=== PATIENT | male | born 1970 | race American Indian/Alaskan Native ===

== ENCOUNTER 2018-07-16 09:54 | Inpatient (IN) | payer MEDICAID ==
[2018-07-16 10:10] VITALS: BMI 26.6
--- NOTE | 2018-07-16 10:22 | C.PDOC ---
History Of Present Illness 47 y/o male with no PMHx presents to the ED, sent in by Dr. Clemons for removal of left arm foreign body. Patient states that since December he has had a palpable FB in the left forearm, which he attributes to an incident where a catheter was left inside during routine blood work. Reports he has been NPO since last night. Patient denies any other physical complaints. He denies any fever, chills, chest pain, SOB, abdominal pain, nausea, or vomiting. Time Seen by Provider: 07/16/18 10:05 Chief Complaint (Nursing): Upper Extremity Problem/Injury History Per: Patient History/Exam Limitations: no limitations Onset/Duration Of Symptoms: Days Current Symptoms Are (Timing): Still Present Past Medical History Reviewed: Historical Data, Nursing Documentation, Vital Signs Vital Signs: Last Vital Signs Temp 98.7 F 07/16/18 10:10 Pulse 82 07/16/18 10:10 Resp 18 07/16/18 10:10 BP 151/82 H 07/16/18 10:10 Pulse Ox 99 07/16/18 10:10 - Medical History PMH: No Chronic Diseases Family History: States: Unknown Family Hx - Social History Hx Tobacco Use: Yes Hx Alcohol Use: Yes Hx Substance Use: No - Immunization History Hx Tetanus Toxoid Vaccination: No Hx Influenza Vaccination: No Hx Pneumococcal Vaccination: No Review Of Systems Except As Marked, All Systems Reviewed And Found Negative. Constitutional: Negative for: Fever, Chills Eyes: Negative for: Vision Change ENT: Negative for: Nose Congestion, Throat Pain Cardiovascular: Negative for: Chest Pain, Palpitations, Light Headedness Respiratory: Negative for: Cough, Shortness of Breath Gastrointestinal: Negative for: Nausea, Vomiting, Abdominal Pain, Diarrhea Musculoskeletal: Negative for: Neck Pain, Back Pain Skin: Positive for: Other (foreign body to left forearm) Neurological: Negative for: Weakness, Numbness, Seizures, Headache, Dizziness Physical Exam - Physical Exam Appears: Well, Non-toxic, No Acute Distress Skin: Normal Color, No Rash Head: Atraumatic, Normacephalic Eye(s): bilateral: Normal Inspection, PERRL, EOMI Oral Mucosa: Moist Neck: Normal ROM Chest: Symmetrical Cardiovascular: Rhythm Regular Respiratory: Normal Breath Sounds, No Accessory Muscle Use, Other (Normal inspiratory effort) Gastrointestinal/Abdominal: Soft, No Tenderness, No Distention Back: Normal Inspection Extremity: Left: Other (Palpable small 1cm non-mobile solid mass to medial left forearm, no open wound, increased warmth, or signs of acute infection), Bilateral: Normal Color And Temperature, Normal ROM Pulses: Left Radial: Normal, Right Radial: Normal Neurological/Psych: Oriented x3, Normal Speech, Normal Motor, Normal Sensation Gait: Steady ED Course And Treatment - Laboratory Results Result Diagrams: 07/16/18 10:57 07/16/18 10:57 ECG: Interpreted By Me, Viewed By Me ECG Rhythm: Sinus Rhythm Interpretation Of ECG: Normal intervals. No STEMI. Early repolarization noted and reviewed with attending Dr. Levy Rate From EC O2 Sat by Pulse Oximetry: 99 (RA) Pulse Ox Interpretation: Normal - Other Rad CXR X-Ray: Interpreted by Me, Viewed By Me Interpretation: Accession No. : [id number]. Patient Name / ID : GABBY COLE / [id number]. Exam Date : 07/16/2018 10:27:51 ( Approved ). Study Comment : Sex / Age : M / 47Y. Creator : Elle Wayne MD. Dictator : Elle Wayne MD. Embossing Calender Operator : Asphalt Heater Operator : Elle Wayne MD. Approver2 : Report Date : 07/16/2018 10:55:45. My Comment : . Date of service: 07/16/2018. HISTORY: preop. COMPARISON: No prior. FINDINGS: LUNGS: The lungs are well inflated and clear. PLEURA: No pleural effusions or pneumothorax. CARDIOVASCULAR: The heart is normal in size. No aortic atherosclerotic calcifications present. OSSEOUS STRUCTURES: Within normal limits for the patient's age. VISUALIZED UPPER ABDOMEN: Normal. OTHER FINDINGS: None. IMPRESSION: No active pulmonary disease. Medical Decision Making Medical Decision Making: Plan: Dr. Clemons to take patient to the OR today. Requesting pre-op labs, CXR, EKG. 10:[address] Clemons, who accepts patient to his service, preop studies. Patient started on IV Ancef per his request. 12:00 Labwork reviewed, unremarkable EKG shows early repolarization but otherwise normal CXR shows no active disease Admission order placed to med/surg floor. Patient made aware of change in disposition. Pt lying comfortably in stretcher in NAD at this time. Vital signs stable. Disposition - Disposition Disposition: HOSPITALIZED Disposition Time: 12:00 Condition: STABLE - Clinical Impression Clinical Impression: Foreign body in left upper extremity - PA / DIRECTOR OF ENTERPRISE STRATEGY / Resident Statement MD/DO has reviewed & agrees with the documentation as recorded. - Scribe Statement The provider has reviewed the documentation as recorded by the Scribe Sumi Crews All medical record entries made by the Miguelina were at my direction and pe rsonally dictated by me. I have reviewed the chart and agree that the record accurately reflects my personal performance of the history, physical exam, medical decision making, and the department course for this patient. I have also personally directed, reviewed, and agree with the discharge instructions and disposition.
[2018-07-16] MEDS ORDERED: ceFAZolin 1 MG in Sodium Chloride 0.9% 50 ML IVPB ONE (10:30)
--- NOTE | 2018-07-16 10:59 | RAD ---
Date of service: 07/16/2018 HISTORY: preop COMPARISON: No prior. FINDINGS: LUNGS: The lungs are well inflated and clear. PLEURA: No pleural effusions or pneumothorax. CARDIOVASCULAR: The heart is normal in size. No aortic atherosclerotic calcifications present. OSSEOUS STRUCTURES: Within normal limits for the patient's age. VISUALIZED UPPER ABDOMEN: Normal. OTHER FINDINGS: None. IMPRESSION: No active pulmonary disease.
[2018-07-16 11:03] LABS: BASO # 0.1 K/uL (0.0-0.2); BASO % 0.5 % (0.0-2.0); EOS % 0.5 % (0.0-4.0); HEMOGLOBIN 14.2 g/dL (12.0-18.0); LYMPH # 1.6 K/uL (1.0-4.3); LYMPH % 17.5 % (20.0-40.0); MEAN CELL VOLUME 85.6 fL (80.0-94.0); MEAN CORPUSCULAR HEMOGLOBIN 27.9 pg (27.0-31.0); MEAN CORPUSCULAR HGB CONC 32.6 g/dL (33.0-37.0); MEAN PLATELET VOLUME 8.9 fL (7.2-11.7); MONO # 0.6 K/uL (0.0-0.8); MONO % 6.5 % (0.0-10.0); NEUT # 6.9 K/uL (1.8-7.0); NRBC % 0.1 % (0.0-2.0); RBC 5.07 Mil/uL (4.40-5.90); RED CELL DISTRIBUTION WIDTH 14.7 % (11.5-14.5); WHITE BLOOD COUNT 9.3 K/uL (4.8-10.8)
[2018-07-16 11:13] LABS: ALB/GLOB RATIO 1.3 (1.0-2.1); ALBUMIN 4.7 g/dL (3.5-5.0); ALT/SGPT 30 U/L (21-72); AST/SGOT 41 U/L (17-59); BLOOD UREA NITROGEN 15 mg/dL (9-20); CALCIUM 9.4 mg/dl (8.6-10.4); GFR NON-AFRICAN AMERICAN > 60
[2018-07-16 11:45] LABS: SQUAMOUS EPITHIAL < 1 /hpf (0-5); URINE BACTERIA RARE (<OCC); URINE BILIRUBIN NEGATIVE (NEGATIVE); URINE BLOOD NEGATIVE (NEGATIVE); URINE CLARITY Hazy (Clear); URINE COLOR Yellow (YELLOW); URINE GLUCOSE (UA) NORMAL (Normal); URINE LEUKOCYTE ESTERASE NEG Leu/uL (Negative); URINE PROTEIN 1+ mg/dL (NEGATIVE)
[2018-07-16] MEDS ORDERED: ceFAZolin 1 GM in Sodium Chloride 0.9% 100 ML IVPB SCH (12:00)
[2018-07-16 12:16] LABS: INR 1.2; PROTHROMBIN TIME 12.7 SECONDS (9.7-12.2)
[2018-07-16] MEDS ORDERED: Bupivacaine 0.25% 20 ML INJ IJ ONE (13:53)
[2018-07-16] MEDS ORDERED: Lidocaine Hydrochloride 20 ML INJ ONE (13:53)
[2018-07-16] MEDS ORDERED: Midazolam 2 MG/2 ML VIAL ONE (14:02)
[2018-07-16] MEDS ORDERED: Propofol 10 mg/ml Inj (20 ML) ONE (14:07)
[2018-07-16] MEDS: HYDROmorphone 0.5 mg/0.5 ml ISec IVP PRN ×4 (14:40→17:50)
[2018-07-16] MEDS ORDERED: Acetaminophen-Codeine 300/30 mg Tab PO PRN (14:43)
[2018-07-16] MEDS ORDERED: HYDROmorphone 0.5 mg/0.5 ml ISec ONE (14:43)
[2018-07-16] MEDS: ceFAZolin 1 GM in Sodium Chloride 0.9% 100 ML IVPB SCH ×2 (16:29→23:58)
[2018-07-16 21:16] VITALS: RESP 20
[2018-07-16] MEDS: Oxycodone/Acetaminophen 5/325 mg Tab PO PRN (22:17)
--- NOTE | 2018-07-17 01:49 | OP ---
PROCEDURE DATE: 07/16/2018 PREOPERATIVE DIAGNOSIS: Soft tissue mass (tumors of the left elbow and forearm). POSTOPERATIVE DIAGNOSIS: Soft tissue mass (tumors of the left elbow and forearm). PROCEDURE PERFORMED: Radical resection of 5 cm tumor of the left elbow and radical resection of 4 cm tumor of the left forearm. SURGEON: Raymond Clemons MD TYPE OF ANESTHESIA: General. ESTIMATED BLOOD LOSS: 30 mL. POSTOPERATIVE CONDITION: Stable. INDICATION FOR SURGERY: This is a 47-year-old male who presents with two separate tumors of the left elbow and forearm, who presents for removal of both. DESCRIPTION OF PROCEDURE: The patient was taken to the operating room, IV sedation was administered. Local anesthesia was admitted into the mass of the left elbow, and it was anesthetized with 0.25% Marcaine and 1% lidocaine. A generous elliptical incision was made surrounding the 5 cm mass excising to the fascial layer and removed. Bleeding was controlled using the Bovie. A larger bleeding blood vessel was mobilized, isolated, and repaired with Prolene superior to the brachial artery. After this was repaired, blood flow was confirmed by Doppler. Large tissue defect was left, and the full thickness advancement flaps raised including fascia. Counter incision was then made and a 34 sq cm. advancement flap closure was performed with multiple layers of subcuticular Monocryl and glue. It was advanced distally in the forearm, this was resected in a similar fashion. Another advancement flap closure was also used for this. The wounds were dressed sterilely. The patient tolerated the procedure well, returned to recovery room in stable condition. Raymond Clemons MD
[2018-07-17] MEDS: Oxycodone/Acetaminophen 5/325 mg Tab PO PRN (02:26)
[2018-07-17 06:21] LABS: BASO % 0.4 % (0.0-2.0); EOS # 0.1 K/uL (0.0-0.7); EOS % 1.4 % (0.0-4.0); HEMOGLOBIN 12.8 g/dL (12.0-18.0); LYMPH # 2.6 K/uL (1.0-4.3); LYMPH % 26.9 % (20.0-40.0); MEAN CELL VOLUME 85.7 fL (80.0-94.0); MEAN CORPUSCULAR HEMOGLOBIN 27.8 pg (27.0-31.0); MEAN CORPUSCULAR HGB CONC 32.4 g/dL (33.0-37.0); MONO % 9.9 % (0.0-10.0); NEUT % 61.4 % (50.0-75.0); NRBC % 0.1 % (0.0-2.0); RBC 4.62 Mil/uL (4.40-5.90); RED CELL DISTRIBUTION WIDTH 14.8 % (11.5-14.5); WHITE BLOOD COUNT 9.8 K/uL (4.8-10.8)
[2018-07-17 06:40] LABS: BLOOD UREA NITROGEN 13 mg/dL (9-20); CALCIUM 8.7 mg/dl (8.6-10.4); GFR NON-AFRICAN AMERICAN > 60
[2018-07-17 07:49] VITALS: BP 134/79; PULSE 55; TEMP 98.7; O2SAT 98
[2018-07-17] MEDS: ceFAZolin 1 GM in Sodium Chloride 0.9% 100 ML IVPB SCH (08:31)
--- NOTE | 2018-07-17 18:04 | CARD ---
APPROVED REPORT Date of service: 07/16/2018 EKG Measurement Heart [id number] <Conclusion> Normal sinus rhythm ST elevation, probably due to early repolarization Borderline ECG
== END 2018-07-17 09:30 | disposition home or self-care (01) | DRG 217 ==
LOC: C.ER 09:54 → C.9E 12:01 → C.3T 20:36
PROVIDERS: ADMIT Surgery; ATTEND Surgery
PROC: 0JBH0ZZ Excision of Left Lower Arm Subcutaneous Tissue and Fascia, Open Approach (ICD-10-PCS; 2018-07-16)
PROC: 0JXH0ZZ Transfer Left Lower Arm Subcutaneous Tissue and Fascia, Open Approach (ICD-10-PCS; 2018-07-16)
PROC: 0JBH0ZZ Excision of Left Lower Arm Subcutaneous Tissue and Fascia, Open Approach (ICD-10-PCS; 2018-07-16)
PROC: 0JXH0ZZ Transfer Left Lower Arm Subcutaneous Tissue and Fascia, Open Approach (ICD-10-PCS; principal; 2018-07-16 14:15)
DX: M79.9 Soft tissue disorder, unspecified (principal)

== ENCOUNTER 2018-07-28 11:00 | Day surgery (SDC) | payer MEDICAID ==
[2018-07-28] MEDS ORDERED: Bupivacaine 0.25% 20 ML INJ IJ ONE (12:07)
[2018-07-28] MEDS ORDERED: ceFAZolin 1 gm in NS 2 GM/200 ML BAG IVPB ONE (12:07)
[2018-07-28] MEDS ORDERED: Lidocaine Hydrochloride 10 ML INJ ONE (12:07)
[2018-07-28] MEDS ORDERED: Propofol 10 mg/ml Inj (20 ML) ONE (12:33)
[2018-07-28] MEDS ORDERED: Midazolam 2 MG/2 ML VIAL ONE (12:33)
[2018-07-28] MEDS ORDERED: HYDROmorphone 0.5 mg/0.5 ml ISec IVP PRN (12:50)
[2018-07-28] MEDS ORDERED: Oxycodone/Acetaminophen 5/325 mg Tab PO PRN (13:11)
[2018-07-28 14:18] VITALS: BP 118/78; PULSE 51; RESP 18; TEMP 98; O2SAT 100
--- NOTE | 2018-07-29 00:13 | OP ---
PROCEDURE DATE: 07/28/2018 PREOPERATIVE DIAGNOSIS: Soft tissue tumor of the right elbow. POSTOPERATIVE DIAGNOSIS: Soft tissue tumor of the right elbow. PROCEDURE PERFORMED: Wide and deep excision (radical resection) of 5-cm tumor with the right elbow. SURGEON: Raymond Clemons MD ANESTHESIA: General. BLOOD LOSS: 30 mL. POSTOPERATIVE CONDITION: Stable. INDICATIONS FOR SURGERY: This is a 48-year-old male with a 5-cm soft tissue tumor of the right elbow who will now undergo radical resection. DESCRIPTION OF PROCEDURE: The patient was taken to the operating room. General anesthesia was administered. The right upper extremity was prepped and draped. A generous elliptical incision was made surrounding the elbow tumor. It was dissected free deep into the fascial layer and muscle and removed. Bleeding was controlled using the Bovie. A branch of brachial artery was noted to be bleeding, mobilized and repaired with a 6-0 Prolene. Blood flow was confirmed by Doppler. The wound was irrigated with copious amounts of saline solution. Full-thickness tissue flaps were raised for an advancement flap closure including muscle and fascia. Counter incisions were made and a 34 sq cm advancement flap closure was performed with multiple layers of Monocryl, subcuticular Monocryl and skin clips. The patient tolerated the procedure well and returned to recovery room in stable condition. Raymond Clemons MD
== END 2018-07-28 14:42 | disposition home or self-care (01) ==
LOC: C.SDS 11:00
PROVIDERS: ATTEND Surgery
DX: D21.11 Benign neoplasm of connective and other soft tissue of right upper limb, including shoulder (principal)
CPT/HCPCS: 24079; 88307; J0690; J1170; J2250; J2704; J3010

== ENCOUNTER 2018-08-07 10:01 | Inpatient (IN) | payer MEDICAID ==
[2018-08-07] MEDS ORDERED: Bupivacaine 0.25% 20 ML INJ IJ ONE (10:54)
[2018-08-07] MEDS ORDERED: ceFAZolin 1 gm in NS 2 GM/200 ML BAG IVPB ONE (10:54)
[2018-08-07] MEDS ORDERED: Lidocaine Hydrochloride 10 ML INJ ONE (10:54)
[2018-08-07] MEDS ORDERED: Lidocaine Hydrochloride 5 ML INJ ONE (11:21)
[2018-08-07] MEDS ORDERED: Midazolam 2 MG/2 ML VIAL ONE (11:21)
[2018-08-07] MEDS ORDERED: Propofol 10 mg/ml Inj (20 ML) ONE (11:21)
[2018-08-07] MEDS ORDERED: Bacitracin 500 Units/gm Oint Foilpak UD ONE (11:56)
[2018-08-07] MEDS ORDERED: HYDROmorphone 0.5 mg/0.5 ml ISec IVP PRN (12:16)
[2018-08-07 15:16] VITALS: RESP 20
[2018-08-07] MEDS: Oxycodone/Acetaminophen 5/325 mg Tab PO PRN ×2 (17:00→21:48)
--- NOTE | 2018-08-07 23:21 | OP ---
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 PROCEDURE PERFORMED: Wide deep excision of 3 cm bone tumor of the right middle finger fingertip. SURGEON: Raymond Clemons MD ANESTHESIA: General. ESTIMATED BLOOD LOSS: 40 mL. POSTOPERATIVE CONDITION: Stable. INDICATIONS FOR SURGERY: This is a 48-year-old male with a history of a left third finger fingertip amputation, which left a small portion of the nail bed. Since that time, he has developed an inflammatory process in that area and has since developed a bone tumor over the fingertip documented by x-ray. He will now undergo wide deep excision of the bone tumor along with a revision of his amputation. DESCRIPTION OF PROCEDURE: The patient was taken to the operating room, general anesthesia was administered and the right hand and fingers were prepped and draped. An elliptical incision was made surrounding the right third fingertip. It was carried down to the bone and the bone was undermined using a periosteal elevator and a [place] dissector along with a scalpel. Once the bone had been widely undermined, a bone cutter was used to remove the remaining stump of the distal phalanx along with a small portion of the middle phalanx. A fair amount of bleeding was encountered and a digital blood vessel supplying the area noted to be bleeding and was repaired with a single 7-0 Prolene. Blood flow was then re-determined by Doppler. The wound was irrigated with copious amounts of saline solution. Generous tissue flaps were raised, full-thickness flaps were raised anteriorly and posteriorly. Counter incisions were made into the fascial layers and an advancement flap closure totaling 20 sq cm was performed using multiple layers of Monocryl, subcuticular Monocryl and glue. The patient tolerated the procedure well and returned to recovery room in stable condition. Raymond Clemons MD
[2018-08-08] MEDS: Oxycodone/Acetaminophen 5/325 mg Tab PO PRN ×2 (03:03→08:09)
[2018-08-08 06:53] LABS: BASO % 0.4 % (0.0-2.0); EOS # 0.2 K/uL (0.0-0.7); EOS % 1.5 % (0.0-4.0); HEMOGLOBIN 12.2 g/dL (12.0-18.0); LYMPH # 2.7 K/uL (1.0-4.3); LYMPH % 25.7 % (20.0-40.0); MEAN CELL VOLUME 86.7 fL (80.0-94.0); MEAN CORPUSCULAR HGB CONC 31.2 g/dL (33.0-37.0); MEAN PLATELET VOLUME 9.3 fL (7.2-11.7); MONO # 0.8 K/uL (0.0-0.8); MONO % 7.4 % (0.0-10.0); NEUT # 6.8 K/uL (1.8-7.0); NRBC % 0.1 % (0.0-2.0); RBC 4.51 Mil/uL (4.40-5.90); RED CELL DISTRIBUTION WIDTH 15.4 % (11.5-14.5); WHITE BLOOD COUNT 10.5 K/uL (4.8-10.8)
[2018-08-08 07:45] LABS: BLOOD UREA NITROGEN 16 mg/dL (9-20); CALCIUM 8.5 mg/dl (8.6-10.4); GFR NON-AFRICAN AMERICAN > 60
[2018-08-08 07:49] VITALS: BP 135/84; PULSE 60; TEMP 97.8; O2SAT 98
== END 2018-08-08 13:20 | disposition home or self-care (01) | DRG 217 ==
LOC: C.SDS 10:01 → C.9S 12:13 → C.6T 14:05
PROVIDERS: ADMIT Surgery; ATTEND Surgery
PROC: 0HXFXZZ Transfer Right Hand Skin, External Approach (ICD-10-PCS; 2018-08-07)
PROC: 0PBT0ZZ Excision of Right Finger Phalanx, Open Approach (ICD-10-PCS; principal; 2018-08-07 11:00)
DX: M89.9 Disorder of bone, unspecified (principal)